=== PATIENT | male | born 1950 | race Caucasian/White ===

== ENCOUNTER 2022-01-28 15:22 | Inpatient (IN) | payer OTHER ==
[2022-01-28 15:44] VITALS: BMI 22.8
[2022-01-28 17:49] LABS: BASO % 0.6 % (0-2.0); EOS % 1.3 % (0-4.5); HEMATOCRIT 29.9 % (35.4-49); HEMOGLOBIN 10.4 GM/dL (11.7-16.9); LYMPH % 18.3 % (8-40); MCH 33.4 pg (25.7-33.7); MCHC 34.7 g/dl (32.0-35.9); MEAN CELL VOLUME 96.2 fl (80-96); MEAN PLT VOLUME 8.6 fl (7.5-11.1); MONO % 10.1 % (3.8-10.2); NEUT % 69.7 % (42.8-82.8); PLATELET COUNT 174 10^3/uL (134-434); RBC 3.11 M/mm3 (4.00-5.60); RDW 13.2 % (11.9-15.9); WHITE BLOOD COUNT 6.2 K/mm3 (4.0-10.0)
[2022-01-28 17:54] LABS: EPI CELLS 26 /uL (0-25.1); HYALINE CASTS 1 /uL (0-3.1); PH,URINE 6.5 (5.0-8.0); URINE APPEARANCE CLEAR; URINE BACTERIA 167 /uL (0-1359); URINE BILIRUBIN NEGATIVE (NEGATIVE); URINE COLOR YELLOW; URINE GLUCOSE (UA) NEGATIVE (NEGATIVE); URINE KETONE NEGATIVE (NEGATIVE); URINE LEUK ESTERASE 2+ (NEGATIVE); URINE NITRITE NEGATIVE (NEGATIVE); URINE PROTEIN 2+ (NEGATIVE); URINE RBC 5 /uL (0-23.9); URINE UROBILINOGEN 0.2 mg/dL (0.2-1.0); URINE WBC 22 /uL (0-25.8)
[2022-01-28 18:06] LABS: CHLORIDE 109 mmol/L (98-107); SODIUM 141 mmol/L (136-145)
[2022-01-28 18:08] LABS: CALCIUM 9.6 mg/dL (8.5-10.1)
[2022-01-28 18:09] LABS: ALBUMIN 3.6 g/dl (3.4-5.0); ANION GAP 10 MMOL/L (8-16); BLOOD UREA NITROGEN 45.5 mg/dL (7-18); CO2 22 mmol/L (21-32); GLUCOSE,RANDOM 99 mg/dL (74-106)
[2022-01-28 18:12] LABS: CREATININE 4.4 mg/dL (0.55-1.3); SGOT/AST 9 U/L (15-37); SGPT/ALT 15 U/L (13-61)
[2022-01-28 18:13] LABS: BILIRUBIN,TOTAL 0.5 mg/dL (0.2-1)
[2022-01-28 18:14] LABS: ALK PHOS 66 U/L (45-117); TOT PROT 7.4 g/dl (6.4-8.2)
[2022-01-28] MEDS ORDERED: SODIUM CHLORIDE 0.9% 500 ML INFUS.BAG IV ONE (18:34)
[2022-01-28] MEDS ORDERED: CEFTRIAXONE 1 GM in DEXTROSE 5%-WATER - 100 ML IVPB ONE (18:34)
[2022-01-28] MEDS ORDERED: CEFTRIAXONE 1 GM/50 ML BAG ONE (18:47)
[2022-01-28 21:17] LABS: MAGNESIUM 2.4 mg/dL (1.8-2.4)
[2022-01-28 21:21] LABS: PHOSPHOROUS 5.8 mg/dL (2.5-4.9)
[2022-01-28 21:23] LABS: IRON SERUM 115 ug/dL (50-175); TOTAL IRON BINDING CAPACITY 256 ug/dL (250-450)
[2022-01-28] MEDS: LIDOCAINE PATCH REMOVAL MC SCH (23:30)
[2022-01-28] MEDS: HEPARIN NA (PORCINE) 5,000 UNITS/ML 1ML VIAL SQ SCH (23:30)
[2022-01-29] MEDS: HEPARIN NA (PORCINE) 5,000 UNITS/ML 1ML VIAL SQ SCH ×3 (07:20→21:21)
[2022-01-29 09:05] LABS: INR 1.04 (0.83-1.09)
[2022-01-29 09:06] LABS: BASO % 1.1 % (0-2.0); EOS % 1.7 % (0-4.5); HEMATOCRIT 30.8 % (35.4-49); HEMOGLOBIN 10.6 GM/dL (11.7-16.9); LYMPH % 18.9 % (8-40); MCH 33.4 pg (25.7-33.7); MCHC 34.5 g/dl (32.0-35.9); MEAN CELL VOLUME 97.1 fl (80-96); MEAN PLT VOLUME 9.2 fl (7.5-11.1); MONO % 7.5 % (3.8-10.2); NEUT % 70.8 % (42.8-82.8); PLATELET COUNT 193 10^3/uL (134-434); RBC 3.17 M/mm3 (4.00-5.60); RDW 13.1 % (11.9-15.9); WHITE BLOOD COUNT 5.3 K/mm3 (4.0-10.0)
[2022-01-29 09:08] LABS: ACTIVATED PTT 27.5 SECONDS (25.2-36.5)
[2022-01-29] MEDS: LIDOCAINE 5% TOPICAL PATCH TP SCH (09:13)
[2022-01-29 09:30] LABS: ALBUMIN 3.8 g/dl (3.4-5.0); BLOOD UREA NITROGEN 42.8 mg/dL (7-18); CALCIUM 9.9 mg/dL (8.5-10.1); MAGNESIUM 2.6 mg/dL (1.8-2.4)
[2022-01-29 09:33] LABS: BILIRUBIN,TOTAL 0.5 mg/dL (0.2-1); CREATININE 4.5 mg/dL (0.55-1.3); TOT PROT 7.3 g/dl (6.4-8.2)
[2022-01-29 10:01] LABS: ERYTHROCYTE SEDIMENTATION RATE 53 mm/hr (0-20)
[2022-01-29] MEDS: SEVELAMER CARBONATE 800 MG TAB (FP) PO SCH (17:16)
[2022-01-29] MEDS: SODIUM CHLORIDE 0.45% 1,000 ML IV SCH (17:17)
[2022-01-29] MEDS: LIDOCAINE PATCH REMOVAL MC SCH (21:21)
[2022-01-30] MEDS: HEPARIN NA (PORCINE) 5,000 UNITS/ML 1ML VIAL SQ SCH ×2 (06:23→06:27)
[2022-01-30 09:16] LABS: HEMATOCRIT 31.1 % (35.4-49); HEMOGLOBIN 10.9 GM/dL (11.7-16.9); MCH 33.6 pg (25.7-33.7); MCHC 35.1 g/dl (32.0-35.9); MEAN CELL VOLUME 95.7 fl (80-96); PLATELET COUNT 184 10^3/uL (134-434); RBC 3.24 M/mm3 (4.00-5.60); RDW 13.1 % (11.9-15.9); WHITE BLOOD COUNT 5.9 K/mm3 (4.0-10.0)
[2022-01-30 09:21] LABS: INR 1.04 (0.83-1.09)
[2022-01-30] MEDS: SEVELAMER CARBONATE 800 MG TAB (FP) PO SCH ×4 (09:29→17:28)
[2022-01-30 09:37] LABS: ALBUMIN 3.7 g/dl (3.4-5.0); BLOOD UREA NITROGEN 38.5 mg/dL (7-18); CALCIUM 9.9 mg/dL (8.5-10.1); MAGNESIUM 2.5 mg/dL (1.8-2.4); PHOSPHOROUS 4.7 mg/dL (2.5-4.9)
[2022-01-30 09:39] LABS: BILIRUBIN,TOTAL 0.6 mg/dL (0.2-1); TOT PROT 7.4 g/dl (6.4-8.2)
[2022-01-30 09:40] LABS: CREATININE 4.2 mg/dL (0.55-1.3); URIC ACID 9.2 mg/dL (2.6-7.2)
[2022-01-30] MEDS ORDERED: ALLOPURINOL 300 MG TABLET (FP) PO SCH (10:00)
[2022-01-30] MEDS: LIDOCAINE 5% TOPICAL PATCH TP SCH (10:02)
[2022-01-30] MEDS ORDERED: SODIUM CHLORIDE 500 ML IV ONE (11:20)
[2022-01-30] MEDS: SODIUM CHLORIDE 0.45% 1,000 ML IV SCH (15:28)
[2022-01-30] MEDS ORDERED: DEXAMETHASONE 4 MG TABLET (FP) PO SCH (19:00)
[2022-01-30] MEDS: DEXAMETHASONE 4 MG TABLET (FP) PO SCH (20:12)
[2022-01-30] MEDS: LIDOCAINE PATCH REMOVAL MC SCH (22:45)
[2022-01-31] MEDS ORDERED: ACETAMINOPHEN 1000 MG/100 ML BAG IVPB ONE (01:06)
[2022-01-31] MEDS: SODIUM CHLORIDE 0.45% 1,000 ML IV SCH ×2 (05:59→15:33)
[2022-01-31] MEDS: SEVELAMER CARBONATE 800 MG TAB (FP) PO SCH ×3 (08:40→17:28)
[2022-01-31 10:26] LABS: HEMATOCRIT 30.5 % (35.4-49); HEMOGLOBIN 10.8 GM/dL (11.7-16.9); MCHC 35.3 g/dl (32.0-35.9); MEAN CELL VOLUME 96.4 fl (80-96); PLATELET COUNT 161 10^3/uL (134-434); RBC 3.17 M/mm3 (4.00-5.60); RDW 13.1 % (11.9-15.9); WHITE BLOOD COUNT 6.5 K/mm3 (4.0-10.0)
[2022-01-31] MEDS: SODIUM BICARBONATE 650 MG TABLET PO SCH (10:38)
[2022-01-31] MEDS: ALLOPURINOL 100 MG TABLET (FP) PO SCH (10:38)
[2022-01-31] MEDS: LIDOCAINE 5% TOPICAL PATCH TP SCH (10:39)
[2022-01-31] MEDS: PANTOPRAZOLE 40 MG TABLET PO SCH (10:39)
[2022-01-31 10:48] LABS: CALCIUM 9.9 mg/dL (8.5-10.1)
[2022-01-31 10:50] LABS: ALBUMIN 3.6 g/dl (3.4-5.0); BLOOD UREA NITROGEN 38.2 mg/dL (7-18); MAGNESIUM 2.2 mg/dL (1.8-2.4)
[2022-01-31 10:52] LABS: CREATININE 3.9 mg/dL (0.55-1.3); PHOSPHOROUS 5.6 mg/dL (2.5-4.9)
[2022-01-31 10:53] LABS: BILIRUBIN,TOTAL 0.6 mg/dL (0.2-1); TOT PROT 7.3 g/dl (6.4-8.2)
[2022-01-31] MEDS ORDERED: SODIUM CHLORIDE 0.45% 1,000 ML IV SCH (17:00)
[2022-01-31] MEDS ORDERED: cefTRIAXone SODIUM 1 GM VIAL ONE (17:27)
[2022-01-31] MEDS ORDERED: DEXTROSE 5%-WATER - 50 ML IVPB ONE (17:27)
[2022-01-31] MEDS: CEFTRIAXONE 1 GM in DEXTROSE 5%-WATER - 50 ML IVPB SCH (17:29)
[2022-01-31] MEDS: DEXAMETHASONE 4 MG TABLET (FP) PO SCH (18:00)
[2022-01-31 18:08] LABS: FREE KAPPA,SERUM 24.6 mg/L (3.3-19.4)
[2022-01-31] MEDS: INSULIN SLIDING SCALE (NOVOLOG) 1 VIAL SQ SCH (21:31)
[2022-01-31] MEDS: LIDOCAINE PATCH REMOVAL MC SCH (21:31)
[2022-02-01] MEDS: INSULIN SLIDING SCALE (NOVOLOG) 1 VIAL SQ SCH ×4 (06:43→21:38)
[2022-02-01] MEDS: SEVELAMER CARBONATE 800 MG TAB (FP) PO SCH ×3 (08:26→18:05)
[2022-02-01] MEDS ORDERED: cefTRIAXone SODIUM 1 GM VIAL ONE (09:57)
[2022-02-01 10:06] LABS: HEMATOCRIT 29.1 % (35.4-49); MCH 33.5 pg (25.7-33.7); MCHC 34.3 g/dl (32.0-35.9); MEAN CELL VOLUME 97.6 fl (80-96); PLATELET COUNT 189 10^3/uL (134-434); RBC 2.98 M/mm3 (4.00-5.60); RDW 13.4 % (11.9-15.9); WHITE BLOOD COUNT 9.3 K/mm3 (4.0-10.0)
[2022-02-01 10:21] LABS: ALBUMIN 3.9 g/dl (3.4-5.0); BLOOD UREA NITROGEN 47.6 mg/dL (7-18); MAGNESIUM 2.3 mg/dL (1.8-2.4)
[2022-02-01 10:24] LABS: CREATININE 3.6 mg/dL (0.55-1.3); PHOSPHOROUS 5.8 mg/dL (2.5-4.9)
[2022-02-01 10:26] LABS: BILIRUBIN,TOTAL 0.3 mg/dL (0.2-1); TOT PROT 7.7 g/dl (6.4-8.2)
[2022-02-01] MEDS: CEFTRIAXONE 1 GM in DEXTROSE 5%-WATER - 50 ML IVPB SCH (10:52)
[2022-02-01] MEDS: SODIUM BICARBONATE 650 MG TABLET PO SCH (10:53)
[2022-02-01] MEDS: ALLOPURINOL 100 MG TABLET (FP) PO SCH (10:53)
[2022-02-01] MEDS: PANTOPRAZOLE 40 MG TABLET PO SCH (10:53)
[2022-02-01] MEDS: LIDOCAINE 5% TOPICAL PATCH TP SCH (10:54)
[2022-02-01] MEDS: SODIUM CHLORIDE 0.45% 1,000 ML IV SCH (16:28)
[2022-02-01] MEDS: DEXAMETHASONE 4 MG TABLET (FP) PO SCH (18:05)
[2022-02-01] MEDS ORDERED: INSULIN (NOVOLOG) ASPART 100 UNITS/ML 10ML VIAL ONE (21:21)
[2022-02-01] MEDS: LIDOCAINE PATCH REMOVAL MC SCH (21:33)
[2022-02-02] MEDS: INSULIN SLIDING SCALE (NOVOLOG) 1 VIAL SQ SCH ×4 (06:20→21:19)
[2022-02-02] MEDS: SEVELAMER CARBONATE 800 MG TAB (FP) PO SCH ×3 (08:39→17:22)
[2022-02-02] MEDS ORDERED: cefTRIAXone SODIUM 1 GM VIAL ONE (09:26)
[2022-02-02] MEDS ORDERED: DEXTROSE 5%-WATER - 50 ML IVPB ONE (09:27)
[2022-02-02] MEDS: PANTOPRAZOLE 40 MG TABLET PO SCH (09:31)
[2022-02-02] MEDS: SODIUM BICARBONATE 650 MG TABLET PO SCH ×3 (09:31→21:19)
[2022-02-02] MEDS: CEFTRIAXONE 1 GM in DEXTROSE 5%-WATER - 50 ML IVPB SCH (09:32)
[2022-02-02] MEDS: ALLOPURINOL 100 MG TABLET (FP) PO SCH (09:32)
[2022-02-02] MEDS: LIDOCAINE 5% TOPICAL PATCH TP SCH (09:33)
[2022-02-02 10:15] LABS: HEMOGLOBIN 8.2 GM/dL (11.7-16.9); MCH 33.8 pg (25.7-33.7); MCHC 34.3 g/dl (32.0-35.9); MEAN CELL VOLUME 98.6 fl (80-96); MEAN PLT VOLUME 8.9 fl (7.5-11.1); PLATELET COUNT 154 10^3/uL (134-434); RBC 2.43 M/mm3 (4.00-5.60); RDW 13.4 % (11.9-15.9)
[2022-02-02 10:45] LABS: ALBUMIN 3.2 g/dl (3.4-5.0)
[2022-02-02 10:46] LABS: MAGNESIUM 2.2 mg/dL (1.8-2.4)
[2022-02-02 10:49] LABS: BILIRUBIN,TOTAL 0.4 mg/dL (0.2-1); CREATININE 3.2 mg/dL (0.55-1.3); PHOSPHOROUS 5.2 mg/dL (2.5-4.9)
[2022-02-02 10:50] LABS: TOT PROT 6.4 g/dl (6.4-8.2)
[2022-02-02 11:07] LABS: ANTIGLOMERULAR BASEMENT MEN.AB 2 units (0-20)
[2022-02-02] MEDS: SODIUM CHLORIDE 0.45% 1,000 ML IV SCH ×2 (15:21→17:27)
[2022-02-02 18:07] LABS: ATYPICAL pANCA <1:20 titer (Neg:<1:20); C-ANCA <1:20 titer (Neg:<1:20)
[2022-02-02] MEDS: DEXAMETHASONE 4 MG TABLET (FP) PO SCH (18:37)
[2022-02-02] MEDS ORDERED: INSULIN (NOVOLOG) ASPART 100 UNITS/ML 10ML VIAL ONE (21:13)
[2022-02-02] MEDS: LIDOCAINE PATCH REMOVAL MC SCH (21:14)
[2022-02-03] MEDS ORDERED: ACETAMINOPHEN 500 MG TABLET (FP) PO ONE (03:25)
[2022-02-03] MEDS: INSULIN SLIDING SCALE (NOVOLOG) 1 VIAL SQ SCH ×4 (06:25→21:19)
[2022-02-03] MEDS: SEVELAMER CARBONATE 800 MG TAB (FP) PO SCH ×3 (08:17→16:59)
[2022-02-03 08:38] LABS: CALCIUM 9.2 mg/dL (8.5-10.1)
[2022-02-03 08:39] LABS: ALBUMIN 3.4 g/dl (3.4-5.0); BLOOD UREA NITROGEN 50.8 mg/dL (7-18); MAGNESIUM 2.2 mg/dL (1.8-2.4)
[2022-02-03 08:40] LABS: HEMATOCRIT 25.4 % (35.4-49); HEMOGLOBIN 8.8 GM/dL (11.7-16.9); MCH 33.6 pg (25.7-33.7); MCHC 34.6 g/dl (32.0-35.9); MEAN CELL VOLUME 97.1 fl (80-96); MEAN PLT VOLUME 8.7 fl (7.5-11.1); PLATELET COUNT 169 10^3/uL (134-434); RBC 2.62 M/mm3 (4.00-5.60); RDW 13.4 % (11.9-15.9); WHITE BLOOD COUNT 9.3 K/mm3 (4.0-10.0)
[2022-02-03 08:42] LABS: PHOSPHOROUS 4.2 mg/dL (2.5-4.9)
[2022-02-03 08:43] LABS: BILIRUBIN,TOTAL 0.3 mg/dL (0.2-1); TOT PROT 6.5 g/dl (6.4-8.2)
[2022-02-03] MEDS: SODIUM CHLORIDE 0.45% 1,000 ML IV SCH ×2 (08:57→16:42)
[2022-02-03] MEDS ORDERED: SODIUM CHLORIDE 500 ML IV SCH (10:30)
[2022-02-03] MEDS: PANTOPRAZOLE 40 MG TABLET PO SCH (11:25)
[2022-02-03] MEDS: LIDOCAINE 5% TOPICAL PATCH TP SCH (11:25)
[2022-02-03] MEDS: SODIUM BICARBONATE 650 MG TABLET PO SCH ×2 (11:26→21:19)
[2022-02-03] MEDS: ALLOPURINOL 100 MG TABLET (FP) PO SCH (11:26)
[2022-02-03 15:10] LABS: ALBUMIN % 6.4 % (.); ALPHA-1 FOR UPE 1.2 % (.); TOTAL PROTEIN, URINE 794.9 mg/dL (Not Estab.)
[2022-02-03] MEDS ORDERED: DEXAMETHASONE 4 MG TABLET (FP) PO ONE (20:00)
[2022-02-03] MEDS: LIDOCAINE PATCH REMOVAL MC SCH (21:14)
[2022-02-03] MEDS ORDERED: ACETAMINOPHEN 1000 MG/100 ML BAG IVPB ONE (23:33)
[2022-02-04] MEDS: INSULIN SLIDING SCALE (NOVOLOG) 1 VIAL SQ SCH ×4 (06:27→21:46)
[2022-02-04 08:25] LABS: HEMATOCRIT 26.1 % (35.4-49); HEMOGLOBIN 9.1 GM/dL (11.7-16.9); MCH 33.6 pg (25.7-33.7); MEAN CELL VOLUME 96.1 fl (80-96); MEAN PLT VOLUME 8.6 fl (7.5-11.1); PLATELET COUNT 146 10^3/uL (134-434); RBC 2.71 M/mm3 (4.00-5.60); RDW 13.4 % (11.9-15.9); WHITE BLOOD COUNT 6.2 K/mm3 (4.0-10.0)
[2022-02-04] MEDS: SEVELAMER CARBONATE 800 MG TAB (FP) PO SCH ×3 (08:38→17:13)
[2022-02-04] MEDS: SODIUM CHLORIDE 0.45% 1,000 ML IV SCH (08:39)
[2022-02-04 08:51] LABS: ALBUMIN 3.2 g/dl (3.4-5.0); CALCIUM 9.1 mg/dL (8.5-10.1)
[2022-02-04 08:54] LABS: CREATININE 2.7 mg/dL (0.55-1.3); PHOSPHOROUS 5.9 mg/dL (2.5-4.9)
[2022-02-04 08:56] LABS: BILIRUBIN,TOTAL 0.6 mg/dL (0.2-1); TOT PROT 6.1 g/dl (6.4-8.2)
[2022-02-04] MEDS: LIDOCAINE 5% TOPICAL PATCH TP SCH (10:44)
[2022-02-04] MEDS: SODIUM BICARBONATE 650 MG TABLET PO SCH ×3 (10:45→21:44)
[2022-02-04] MEDS: PANTOPRAZOLE 40 MG TABLET PO SCH (10:45)
[2022-02-04] MEDS: ALLOPURINOL 100 MG TABLET (FP) PO SCH ×2 (10:45→10:50)
[2022-02-04 15:07] LABS: FREE KAP CHN UR 100.11 mg/L (1.17-86.46)
[2022-02-04] MEDS ORDERED: INSULIN (NOVOLOG) ASPART 100 UNITS/ML 10ML VIAL ONE (21:20)
[2022-02-04] MEDS: HEPARIN NA (PORCINE) 5,000 UNITS/ML 1ML VIAL SQ SCH (21:44)
[2022-02-04] MEDS: LIDOCAINE PATCH REMOVAL MC SCH (22:00)
[2022-02-05] MEDS ORDERED: ACETAMINOPHEN 325 MG TABLET (FP) PO PRN (00:51)
[2022-02-05] MEDS: SODIUM CHLORIDE 0.45% 1,000 ML IV SCH ×2 (02:38→11:44)
[2022-02-05] MEDS: INSULIN SLIDING SCALE (NOVOLOG) 1 VIAL SQ SCH ×2 (06:37→11:32)
[2022-02-05] MEDS: HEPARIN NA (PORCINE) 5,000 UNITS/ML 1ML VIAL SQ SCH ×2 (06:37→14:17)
[2022-02-05] MEDS: SEVELAMER CARBONATE 800 MG TAB (FP) PO SCH ×2 (08:21→11:44)
[2022-02-05 08:27] LABS: HEMATOCRIT 23.5 % (35.4-49); HEMOGLOBIN 8.2 GM/dL (11.7-16.9); MCH 33.5 pg (25.7-33.7); MCHC 34.8 g/dl (32.0-35.9); MEAN CELL VOLUME 96.4 fl (80-96); MEAN PLT VOLUME 8.4 fl (7.5-11.1); PLATELET COUNT 136 10^3/uL (134-434); RBC 2.43 M/mm3 (4.00-5.60); RDW 13.2 % (11.9-15.9); WHITE BLOOD COUNT 6.1 K/mm3 (4.0-10.0)
[2022-02-05 08:57] LABS: BLOOD UREA NITROGEN 48.8 mg/dL (7-18)
[2022-02-05 08:58] LABS: ALBUMIN 2.8 g/dl (3.4-5.0); CALCIUM 8.8 mg/dL (8.5-10.1); MAGNESIUM 2.3 mg/dL (1.8-2.4)
[2022-02-05 09:01] LABS: PHOSPHOROUS 4.1 mg/dL (2.5-4.9); TOT PROT 5.4 g/dl (6.4-8.2)
[2022-02-05 09:02] LABS: BILIRUBIN,TOTAL 0.4 mg/dL (0.2-1); CREATININE 2.6 mg/dL (0.55-1.3)
[2022-02-05] MEDS: LIDOCAINE 5% TOPICAL PATCH TP SCH (10:16)
[2022-02-05] MEDS: PANTOPRAZOLE 40 MG TABLET PO SCH (10:16)
[2022-02-05] MEDS: ALLOPURINOL 100 MG TABLET (FP) PO SCH (10:16)
[2022-02-05] MEDS: SODIUM BICARBONATE 650 MG TABLET PO SCH (10:16)
[2022-02-05 11:04] VITALS: TEMP 97.8
[2022-02-05] MEDS ORDERED: INSULIN (NOVOLOG) ASPART 100 UNITS/ML 10ML VIAL ONE (11:22)
[2022-02-05] MEDS ORDERED: oxyCODONE HCL 5 MG TABLET PO PRN (13:09)
[2022-02-05 15:26] VITALS: BP 91/52; PULSE 52
== END 2022-02-05 15:55 | disposition home or self-care (01) | DRG 841 ==
LOC: JER 15:22 → JERBED 19:21 → J6S 22:49
PROVIDERS: ADMIT Hospitalist; ATTEND Internal Medicine
PROC: 07DR3ZX Extraction of Iliac Bone Marrow, Percutaneous Approach, Diagnostic (ICD-10-PCS; principal; 2022-02-03)
PROC: 079T3ZX Drainage of Bone Marrow, Percutaneous Approach, Diagnostic (ICD-10-PCS; 2022-02-03)
DX: C90.00 Multiple myeloma not having achieved remission (principal); N17.9 Acute kidney failure, unspecified; N39.0 Urinary tract infection, site not specified; C79.51 Secondary malignant neoplasm of bone; M35.00 Sjogren syndrome, unspecified; D63.8 Anemia in other chronic diseases classified elsewhere; Z79.1 Long term (current) use of non-steroidal anti-inflammatories (NSAID); R80.9 Proteinuria, unspecified; R31.29 Other microscopic hematuria; K76.0 Fatty (change of) liver, not elsewhere classified; R91.1 Solitary pulmonary nodule
CPT/HCPCS: 20225; 36415; 71046-TC-FY; 71250-TC; 72170-TC-FY; 73552-TC-LT-FY; 73552-TC-RT-FY; 73590-TC-LT-FY; 73590-TC-RT-FY; 74176-TC; 76775-TC; 80053; 81003; 82436; 82550; 82570; 82607; 82728; 82746; 82784; 82962; 83036; 83516; 83520; 83540; 83550; 83615; 83735; 83883; 84100; 84155; 84156; 84165; 84166; 84300; 84550; 85025; 85027; 85610; 85651; 85730; 86038; 86140; 86225; 86256; 86803; 86850; 86900; 86901; 87040; 87077; 87086; 87340; 87517; 88300-TC; 88305-TC; 88311-TC; 93005; 93010; 94010; 97116-GP; 97161-GP; 99285-25; C9803-CS; J1644; U0003; U0005

== ENCOUNTER 2022-02-12 07:22 | Day surgery (SDC) | payer OTHER ==
[2022-02-12] MEDS ORDERED: CYCLOPHOSPHAMIDE PO ONE (09:00)
[2022-02-12] MEDS ORDERED: DEXAMETHASONE 4 MG TABLET (FP) PO ONE (09:00)
[2022-02-12] MEDS ORDERED: BORTEZOMIB (VELCADE) 2.5 MG/ML SUB-Q INJECTION SQ ONE (09:00)
[2022-02-12] MEDS ORDERED: ONDANSETRON 4 MG TABLET PO ONE (15:34)
[2022-02-12 16:21] VITALS: TEMP 97.4
[2022-02-12 16:35] VITALS: BP 116/64; PULSE 80
== END 2022-02-12 17:30 | disposition home or self-care (01) ==
LOC: JONCCHEMO 07:22
PROVIDERS: ATTEND Internal Medicine Hematology & Oncology
DX: Z51.11 Encounter for antineoplastic chemotherapy (principal); C90.00 Multiple myeloma not having achieved remission
CPT/HCPCS: 96401; J9041

== ENCOUNTER 2022-02-19 07:30 | Day surgery (SDC) | payer OTHER ==
[2022-02-19] MEDS ORDERED: BORTEZOMIB (VELCADE) 2.5 MG/ML SUB-Q INJECTION SQ ONE (10:00)
[2022-02-19] MEDS ORDERED: DEXAMETHASONE 4 MG TABLET (FP) PO ONE (10:00)
[2022-02-19] MEDS ORDERED: CYCLOPHOSPHAMIDE PO ONE (10:00)
[2022-02-19 10:48] LABS: BASO % 0.2 % (0-2.0); EOS % 0.3 % (0-4.5); HEMATOCRIT 27.5 % (35.4-49); HEMOGLOBIN 9.6 GM/dL (11.7-16.9); LYMPH % 10.4 % (8-40); MCH 33.8 pg (25.7-33.7); MEAN CELL VOLUME 96.4 fl (80-96); MEAN PLT VOLUME 8.4 fl (7.5-11.1); MONO % 11.2 % (3.8-10.2); NEUT % 77.9 % (42.8-82.8); PLATELET COUNT 115 10^3/uL (134-434); RBC 2.85 M/mm3 (4.00-5.60); RDW 13.4 % (11.9-15.9); WHITE BLOOD COUNT 3.6 K/mm3 (4.0-10.0)
[2022-02-19 11:10] LABS: BLOOD UREA NITROGEN 28.5 mg/dL (7-18); CALCIUM 8.4 mg/dL (8.5-10.1)
[2022-02-19 11:11] LABS: ALBUMIN 3.4 g/dl (3.4-5.0)
[2022-02-19 11:14] LABS: CREATININE 2.5 mg/dL (0.55-1.3)
[2022-02-19 11:15] LABS: BILIRUBIN,TOTAL 0.9 mg/dL (0.2-1); TOT PROT 6.3 g/dl (6.4-8.2)
[2022-02-19] MEDS ORDERED: DENOSUMAB 120 MG/1.7 ML VIAL SQ ONE (11:46)
[2022-02-19 16:42] VITALS: BP 138/75; PULSE 70; TEMP 97.6
== END 2022-02-19 15:00 | disposition home or self-care (01) ==
LOC: JONCCHEMO 07:30
PROVIDERS: ATTEND Internal Medicine Hematology & Oncology
PROC: 3E01305 Introduction of Other Antineoplastic into Subcutaneous Tissue, Percutaneous Approach (ICD-10-PCS; principal; 2022-02-19)
PROC: 3E013GC Introduction of Other Therapeutic Substance into Subcutaneous Tissue, Percutaneous Approach (ICD-10-PCS; 2022-02-19)
DX: Z51.11 Encounter for antineoplastic chemotherapy (principal); C90.00 Multiple myeloma not having achieved remission
CPT/HCPCS: 36415; 80053; 85025; 96372; 96401; J0897; J9041

== ENCOUNTER 2022-02-27 06:50 | Day surgery (SDC) | payer OTHER ==
[2022-02-27 11:45] LABS: BASO % 0.6 % (0-2.0); EOS % 1.4 % (0-4.5); HEMATOCRIT 27.3 % (35.4-49); HEMOGLOBIN 9.4 GM/dL (11.7-16.9); LYMPH % 12.8 % (8-40); MCH 33.9 pg (25.7-33.7); MCHC 34.6 g/dl (32.0-35.9); MEAN CELL VOLUME 97.9 fl (80-96); MEAN PLT VOLUME 8.5 fl (7.5-11.1); MONO % 13.2 % (3.8-10.2); PLATELET COUNT 202 10^3/uL (134-434); RBC 2.78 M/mm3 (4.00-5.60); RDW 14.7 % (11.9-15.9); WHITE BLOOD COUNT 3.9 K/mm3 (4.0-10.0)
[2022-02-27 12:05] LABS: ALBUMIN 3.5 g/dl (3.4-5.0); BLOOD UREA NITROGEN 15.7 mg/dL (7-18); CALCIUM 8.7 mg/dL (8.5-10.1)
[2022-02-27 12:10] LABS: BILIRUBIN,TOTAL 0.5 mg/dL (0.2-1); TOT PROT 6.1 g/dl (6.4-8.2)
[2022-02-27] MEDS ORDERED: DEXAMETHASONE 4 MG TABLET (FP) PO ONE (13:00)
[2022-02-27] MEDS ORDERED: CYCLOPHOSPHAMIDE 50 MG CAPSULE PO ONE (13:00)
[2022-02-27] MEDS ORDERED: CYCLOPHOSPHAMIDE PO ONE (13:00)
[2022-02-27] MEDS ORDERED: BORTEZOMIB (VELCADE) 2.5 MG/ML SUB-Q INJECTION SQ ONE (13:30)
[2022-02-27 17:17] VITALS: BP 139/60; PULSE 69; TEMP 98.9
== END 2022-02-27 14:00 | disposition home or self-care (01) ==
LOC: JONCCHEMO 06:50
PROVIDERS: ATTEND Internal Medicine Hematology & Oncology
DX: Z51.11 Encounter for antineoplastic chemotherapy (principal); C90.00 Multiple myeloma not having achieved remission
CPT/HCPCS: 36415; 80053; 85025; 96401; J9041

== ENCOUNTER 2022-03-06 08:03 | Day surgery (SDC) | payer OTHER ==
[2022-03-06 10:59] LABS: BASO % 0.5 % (0-2.0); EOS % 0.5 % (0-4.5); HEMATOCRIT 26.6 % (35.4-49); HEMOGLOBIN 9.2 GM/dL (11.7-16.9); LYMPH % 9.7 % (8-40); MCH 34.2 pg (25.7-33.7); MCHC 34.5 g/dl (32.0-35.9); MEAN CELL VOLUME 99.3 fl (80-96); MEAN PLT VOLUME 8.2 fl (7.5-11.1); MONO % 11.3 % (3.8-10.2); PLATELET COUNT 169 10^3/uL (134-434); RBC 2.68 M/mm3 (4.00-5.60); RDW 14.1 % (11.9-15.9); WHITE BLOOD COUNT 3.1 K/mm3 (4.0-10.0)
[2022-03-06] MEDS ORDERED: BORTEZOMIB (VELCADE) 2.5 MG/ML SUB-Q INJECTION SQ ONE (11:00)
[2022-03-06] MEDS ORDERED: DEXAMETHASONE 4 MG TABLET (FP) PO ONE (11:00)
[2022-03-06] MEDS ORDERED: CYCLOPHOSPHAMIDE 50 MG CAPSULE PO ONE (11:00)
[2022-03-06 11:20] LABS: CALCIUM 8.4 mg/dL (8.5-10.1)
[2022-03-06 11:21] LABS: ALBUMIN 3.6 g/dl (3.4-5.0); BLOOD UREA NITROGEN 22.9 mg/dL (7-18)
[2022-03-06 11:25] LABS: TOT PROT 6.3 g/dl (6.4-8.2)
[2022-03-06 15:49] VITALS: BP 120/63; PULSE 67; TEMP 98.4
[2022-03-10 15:13] LABS: FREE KAPPA,SERUM 24.1
== END 2022-03-06 13:20 | disposition home or self-care (01) ==
LOC: JONCCHEMO 08:03
PROVIDERS: ATTEND Internal Medicine Hematology & Oncology
DX: Z51.11 Encounter for antineoplastic chemotherapy (principal); C90.00 Multiple myeloma not having achieved remission
CPT/HCPCS: 36415; 80053; 83883; 85025; 96401; J9041

== ENCOUNTER 2022-03-07 09:17 | Observation (INO) | payer OTHER ==
[2022-03-07] MEDS ORDERED: ACETAMINOPHEN 1000 MG/100 ML BAG IVPB ONE (10:07)
[2022-03-07] MEDS ORDERED: morphine CARPU-JECT 4 MG/1 ML DISP.SYRIN IVPUSH ONE (10:07)
[2022-03-07] MEDS ORDERED: LORazepam 2 MG/ML SDV VIAL IVPUSH ONE (10:30)
[2022-03-07] MEDS ORDERED: ACETAMINOPHEN INJECTION 100 ML IVPB ONE (10:37)
[2022-03-07] MEDS ORDERED: morphine SULFATE 4 MG/ML VIAL ONE ×2 (10:37→14:52)
[2022-03-07 10:47] LABS: BASO % 0.2 % (0-2.0); HEMATOCRIT 23.4 % (35.4-49); HEMOGLOBIN 8.2 GM/dL (11.7-16.9); LYMPH % 4.5 % (8-40); MCH 34.1 pg (25.7-33.7); MCHC 34.9 g/dl (32.0-35.9); MEAN CELL VOLUME 97.8 fl (80-96); MEAN PLT VOLUME 8.3 fl (7.5-11.1); MONO % 6.9 % (3.8-10.2); NEUT % 88.4 % (42.8-82.8); PLATELET COUNT 151 10^3/uL (134-434); RBC 2.39 M/mm3 (4.00-5.60); RDW 14.1 % (11.9-15.9); WHITE BLOOD COUNT 5.4 K/mm3 (4.0-10.0)
[2022-03-07 11:06] LABS: ALBUMIN 3.1 g/dl (3.4-5.0); BLOOD UREA NITROGEN 24.8 mg/dL (7-18); CALCIUM 8.4 mg/dL (8.5-10.1)
[2022-03-07 11:09] LABS: CREATININE 2.1 mg/dL (0.55-1.3)
[2022-03-07 11:11] LABS: BILIRUBIN,TOTAL 0.4 mg/dL (0.2-1); TOT PROT 5.4 g/dl (6.4-8.2)
[2022-03-07 17:41] VITALS: BMI 22.1
[2022-03-07] MEDS: SEVELAMER CARBONATE 800 MG TAB (FP) PO SCH (18:03)
[2022-03-07] MEDS: SODIUM BICARBONATE 650 MG TABLET PO SCH (21:16)
[2022-03-07] MEDS: HEPARIN NA (PORCINE) 5,000 UNITS/ML 1ML VIAL SQ SCH (21:16)
[2022-03-07] MEDS: oxyCODONE HCL 5 MG TABLET PO PRN (23:25)
[2022-03-08] MEDS ORDERED: ACETAMINOPHEN 325 MG TABLET (FP) PO ONE (05:19)
[2022-03-08] MEDS: SEVELAMER CARBONATE 800 MG TAB (FP) PO SCH ×2 (07:42→11:35)
[2022-03-08] MEDS: HEPARIN NA (PORCINE) 5,000 UNITS/ML 1ML VIAL SQ SCH (09:07)
[2022-03-08] MEDS: SODIUM BICARBONATE 650 MG TABLET PO SCH (09:07)
[2022-03-08 09:38] LABS: BASO % 0.6 % (0-2.0); EOS % 0.2 % (0-4.5); HEMATOCRIT 22.5 % (35.4-49); HEMOGLOBIN 7.7 GM/dL (11.7-16.9); LYMPH % 7.1 % (8-40); MCH 33.8 pg (25.7-33.7); MCHC 34.4 g/dl (32.0-35.9); MEAN CELL VOLUME 98.3 fl (80-96); MEAN PLT VOLUME 8.8 fl (7.5-11.1); MONO % 9.8 % (3.8-10.2); NEUT % 82.3 % (42.8-82.8); PLATELET COUNT 144 10^3/uL (134-434); RBC 2.29 M/mm3 (4.00-5.60); RDW 14.2 % (11.9-15.9); WHITE BLOOD COUNT 3.5 K/mm3 (4.0-10.0)
[2022-03-08 09:58] LABS: BLOOD UREA NITROGEN 25.8 mg/dL (7-18)
[2022-03-08 09:59] LABS: ALBUMIN 2.8 g/dl (3.4-5.0); CALCIUM 7.6 mg/dL (8.5-10.1)
[2022-03-08] MEDS ORDERED: ALLOPURINOL 100 MG TABLET (FP) PO SCH (10:00)
[2022-03-08 10:02] LABS: CREATININE 2.3 mg/dL (0.55-1.3)
[2022-03-08 10:03] LABS: BILIRUBIN,TOTAL 0.8 mg/dL (0.2-1); TOT PROT 5.1 g/dl (6.4-8.2)
[2022-03-08 10:51] VITALS: BP 105/58; PULSE 84; TEMP 98.2
[2022-03-08] MEDS: oxyCODONE HCL 5 MG TABLET PO PRN (11:33)
[2022-03-08] MEDS ORDERED: ACETAMINOPHEN 325 MG TABLET (FP) PO PRN (12:00)
== END 2022-03-08 13:40 | disposition left against medical advice (07) ==
LOC: JER 09:17 → JERBED 13:47 → J5S 17:53
PROVIDERS: ADMIT Internal Medicine; ATTEND Nurse Practitioner Family
PROC: 3E033NZ Introduction of Analgesics, Hypnotics, Sedatives into Peripheral Vein, Percutaneous Approach (ICD-10-PCS; principal; 2022-03-07)
PROC: 3E023GC Introduction of Other Therapeutic Substance into Muscle, Percutaneous Approach (ICD-10-PCS; 2022-03-07)
PROC: 3E033NZ Introduction of Analgesics, Hypnotics, Sedatives into Peripheral Vein, Percutaneous Approach (ICD-10-PCS; 2022-03-07)
DX: M35.09 Sjogren syndrome with other organ involvement (principal); C90.00 Multiple myeloma not having achieved remission; M54.6 Pain in thoracic spine; Z87.891 Personal history of nicotine dependence; D64.9 Anemia, unspecified; C79.51 Secondary malignant neoplasm of bone; M48.50XA Collapsed vertebra, not elsewhere classified, site unspecified, initial encounter for fracture
CPT/HCPCS: 36415; 71045-TC-FY; 72125-TC; 72128-TC; 72131-TC; 72146-TC; 72148-TC; 80053; 83605; 85025; 87040; 87804; 93005; 93010; 96372; 96374; 96375; 96376; 99285-25; C9803-CS; G0378; J1644; U0003; U0005

== ENCOUNTER 2022-03-13 07:10 | Day surgery (SDC) | payer OTHER ==
[2022-03-13] MEDS ORDERED: DEXAMETHASONE 4 MG TABLET (FP) PO ONE (10:00)
[2022-03-13] MEDS ORDERED: CYCLOPHOSPHAMIDE 50 MG CAPSULE PO ONE (10:00)
[2022-03-13] MEDS ORDERED: BORTEZOMIB (VELCADE) 2.5 MG/ML SUB-Q INJECTION SQ ONE (10:00)
[2022-03-13 11:51] LABS: BASO % 0.5 % (0-2.0); EOS % 1.6 % (0-4.5); HEMATOCRIT 25.8 % (35.4-49); HEMOGLOBIN 8.7 GM/dL (11.7-16.9); LYMPH % 11.3 % (8-40); MCH 33.6 pg (25.7-33.7); MCHC 33.6 g/dl (32.0-35.9); MEAN CELL VOLUME 100.2 fl (80-96); MEAN PLT VOLUME 8.2 fl (7.5-11.1); MONO % 13.2 % (3.8-10.2); NEUT % 73.4 % (42.8-82.8); PLATELET COUNT 201 10^3/uL (134-434); RBC 2.57 M/mm3 (4.00-5.60); RDW 14.6 % (11.9-15.9); WHITE BLOOD COUNT 4.1 K/mm3 (4.0-10.0)
[2022-03-13 12:10] LABS: ALBUMIN 3.2 g/dl (3.4-5.0); BLOOD UREA NITROGEN 17.5 mg/dL (7-18); CALCIUM 7.6 mg/dL (8.5-10.1)
[2022-03-13 12:13] LABS: CREATININE 1.7 mg/dL (0.55-1.3)
[2022-03-13 12:15] LABS: BILIRUBIN,TOTAL 0.9 mg/dL (0.2-1); TOT PROT 5.7 g/dl (6.4-8.2)
[2022-03-13 16:32] VITALS: BP 136/79; PULSE 76; TEMP 97.9
== END 2022-03-13 13:30 | disposition home or self-care (01) ==
LOC: JONCCHEMO 07:10
PROVIDERS: ATTEND Internal Medicine Hematology & Oncology
DX: Z51.11 Encounter for antineoplastic chemotherapy (principal); C90.00 Multiple myeloma not having achieved remission
CPT/HCPCS: 36415; 80053; 85025; 96401; J9041

== ENCOUNTER 2022-03-20 07:24 | Day surgery (SDC) | payer OTHER ==
[2022-03-20] MEDS ORDERED: CYCLOPHOSPHAMIDE 50 MG CAPSULE PO ONE (10:00)
[2022-03-20] MEDS ORDERED: DEXAMETHASONE 4 MG TABLET (FP) PO ONE (10:00)
[2022-03-20] MEDS ORDERED: BORTEZOMIB (VELCADE) 2.5 MG/ML SUB-Q INJECTION SQ ONE (10:00)
[2022-03-20 12:27] LABS: BASO % 0.4 % (0-2.0); EOS % 0.9 % (0-4.5); HEMATOCRIT 26.3 % (35.4-49); HEMOGLOBIN 8.8 GM/dL (11.7-16.9); LYMPH % 13.7 % (8-40); MCH 33.8 pg (25.7-33.7); MCHC 33.4 g/dl (32.0-35.9); MEAN CELL VOLUME 101.1 fl (80-96); MEAN PLT VOLUME 8.6 fl (7.5-11.1); MONO % 12.1 % (3.8-10.2); NEUT % 72.9 % (42.8-82.8); PLATELET COUNT 164 10^3/uL (134-434); RDW 14.5 % (11.9-15.9); WHITE BLOOD COUNT 2.5 K/mm3 (4.0-10.0)
[2022-03-20] MEDS ORDERED: DENOSUMAB 120 MG/1.7 ML VIAL SQ ONE (13:12)
[2022-03-20 13:48] LABS: CHLORIDE 113 mmol/L (98-107); SODIUM 140 mmol/L (136-145)
[2022-03-20 13:50] LABS: ALBUMIN 3.1 g/dl (3.4-5.0); ANION GAP 6 MMOL/L (8-16); BLOOD UREA NITROGEN 16.2 mg/dL (7-18); CO2 21 mmol/L (21-32); GLUCOSE,RANDOM 100 mg/dL (74-106)
[2022-03-20 13:53] LABS: CREATININE 1.7 mg/dL (0.55-1.3); SGOT/AST 9 U/L (15-37)
[2022-03-20 13:54] LABS: SGPT/ALT 15 U/L (13-61)
[2022-03-20 13:55] LABS: BILIRUBIN,TOTAL 0.5 mg/dL (0.2-1); TOT PROT 5.7 g/dl (6.4-8.2)
[2022-03-20 13:56] VITALS: TEMP 97.7
[2022-03-20 13:56] LABS: ALK PHOS 414 U/L (45-117); CALCIUM 6.9 mg/dL (8.5-10.1)
[2022-03-20 15:49] VITALS: BP 123/68; PULSE 74
[2022-03-25 19:07] LABS: FREE KAPPA,SERUM 30.5 mg/L (3.3-19.4)
== END 2022-03-20 15:50 | disposition home or self-care (01) ==
LOC: JONCCHEMO 07:24
PROVIDERS: ATTEND Internal Medicine Hematology & Oncology
DX: Z51.11 Encounter for antineoplastic chemotherapy (principal); C90.00 Multiple myeloma not having achieved remission
CPT/HCPCS: 36415; 80053; 82784; 83883; 84155; 84165; 85025; 96401; J9041

== ENCOUNTER 2022-03-27 07:45 | Day surgery (SDC) | payer OTHER ==
[2022-03-27] MEDS ORDERED: CYCLOPHOSPHAMIDE 50 MG CAPSULE PO ONE (10:00)
[2022-03-27] MEDS ORDERED: DEXAMETHASONE 4 MG TABLET (FP) PO ONE (10:00)
[2022-03-27] MEDS ORDERED: BORTEZOMIB (VELCADE) 2.5 MG/ML SUB-Q INJECTION SQ ONE (10:00)
[2022-03-27 13:46] LABS: BASO % 0.5 % (0-2.0); EOS % 1.7 % (0-4.5); HEMATOCRIT 29.9 % (35.4-49); LYMPH % 19.7 % (8-40); MCH 33.3 pg (25.7-33.7); MCHC 33.2 g/dl (32.0-35.9); MEAN CELL VOLUME 100.2 fl (80-96); MEAN PLT VOLUME 8.1 fl (7.5-11.1); NEUT % 64.1 % (42.8-82.8); PLATELET COUNT 140 10^3/uL (134-434); RBC 2.99 M/mm3 (4.00-5.60); RDW 13.8 % (11.9-15.9)
[2022-03-27 14:09] LABS: ALBUMIN 3.4 g/dl (3.4-5.0); BLOOD UREA NITROGEN 20.4 mg/dL (7-18)
[2022-03-27 14:14] LABS: BILIRUBIN,TOTAL 0.5 mg/dL (0.2-1)
[2022-03-27 14:24] LABS: CALCIUM 8.3 mg/dL (8.5-10.1); CREATININE 1.6 mg/dL (0.55-1.3)
[2022-03-27] MEDS ORDERED: DENOSUMAB 120 MG/1.7 ML VIAL SQ ONE (15:45)
[2022-03-27 15:46] VITALS: BP 131/72; PULSE 67; TEMP 97.6
[2022-03-27] MEDS ORDERED: CYCLOPHOSPHAMIDE 25 MG CAPSULE PO ONE (16:00)
== END 2022-03-27 16:05 | disposition home or self-care (01) ==
LOC: JONCCHEMO 07:45
PROVIDERS: ATTEND Internal Medicine Hematology & Oncology
PROC: 3E01305 Introduction of Other Antineoplastic into Subcutaneous Tissue, Percutaneous Approach (ICD-10-PCS; principal; 2022-03-27)
PROC: 3E013GC Introduction of Other Therapeutic Substance into Subcutaneous Tissue, Percutaneous Approach (ICD-10-PCS; 2022-03-27)
DX: Z51.11 Encounter for antineoplastic chemotherapy (principal); C90.00 Multiple myeloma not having achieved remission
CPT/HCPCS: 36415; 80053; 85025; 96372; 96401; J0897; J9041

== ENCOUNTER 2022-04-03 06:29 | Day surgery (SDC) | payer OTHER ==
[2022-04-03] MEDS ORDERED: BORTEZOMIB (VELCADE) 2.5 MG/ML SUB-Q INJECTION SQ ONE (10:00)
[2022-04-03] MEDS ORDERED: CYCLOPHOSPHAMIDE 50 MG CAPSULE PO ONE (10:00)
[2022-04-03] MEDS ORDERED: DEXAMETHASONE 4 MG TABLET (FP) PO ONE (10:00)
[2022-04-03 14:04] LABS: HEMATOCRIT 28.3 % (35.4-49); HEMOGLOBIN 9.6 GM/dL (11.7-16.9); MCH 33.5 pg (25.7-33.7); MCHC 33.8 g/dl (32.0-35.9); MEAN CELL VOLUME 98.8 fl (80-96); MEAN PLT VOLUME 8.2 fl (7.5-11.1); PLATELET COUNT 148 10^3/uL (134-434); RBC 2.86 M/mm3 (4.00-5.60); RDW 13.9 % (11.9-15.9); WHITE BLOOD COUNT 4.3 K/mm3 (4.0-10.0)
[2022-04-03 14:28] LABS: ALBUMIN 3.4 g/dl (3.4-5.0); BLOOD UREA NITROGEN 18.6 mg/dL (7-18)
[2022-04-03 14:31] LABS: CREATININE 1.6 mg/dL (0.55-1.3)
[2022-04-03 14:32] LABS: BILIRUBIN,TOTAL 0.6 mg/dL (0.2-1); TOT PROT 5.9 g/dl (6.4-8.2)
[2022-04-03 14:41] LABS: ANISOCYTOSIS 1+; MACROCYTOSIS 1+; OVALOCYTE 0
[2022-04-03] MEDS ORDERED: CYCLOPHOSPHAMIDE PO ONE (15:00)
[2022-04-03 17:49] VITALS: BP 153/77; PULSE 61; TEMP 97.7
== END 2022-04-03 15:10 | disposition home or self-care (01) ==
LOC: JONCCHEMO 06:29
PROVIDERS: ATTEND Internal Medicine Hematology & Oncology
DX: Z51.11 Encounter for antineoplastic chemotherapy (principal); C90.00 Multiple myeloma not having achieved remission
CPT/HCPCS: 36415; 80053; 85025; 96401; J9041

== ENCOUNTER 2022-04-10 08:08 | Day surgery (SDC) | payer OTHER ==
[2022-04-10] MEDS ORDERED: DEXAMETHASONE 4 MG TABLET (FP) PO ONE (10:00)
[2022-04-10] MEDS ORDERED: CYCLOPHOSPHAMIDE PO ONE (10:00)
[2022-04-10] MEDS ORDERED: BORTEZOMIB (VELCADE) 2.5 MG/ML SUB-Q INJECTION SQ ONE (10:30)
[2022-04-10 11:08] LABS: HEMATOCRIT 31.3 % (35.4-49); HEMOGLOBIN 10.8 GM/dL (11.7-16.9); MCH 33.7 pg (25.7-33.7); MCHC 34.4 g/dl (32.0-35.9); MEAN CELL VOLUME 97.8 fl (80-96); MEAN PLT VOLUME 8.7 fl (7.5-11.1); PLATELET COUNT 191 10^3/uL (134-434); RDW 13.7 % (11.9-15.9); WHITE BLOOD COUNT 3.5 K/mm3 (4.0-10.0)
[2022-04-10 11:17] VITALS: BP 124/68; PULSE 68; TEMP 98
[2022-04-10 11:36] LABS: CALCIUM 8.8 mg/dL (8.5-10.1)
[2022-04-10 11:37] LABS: ALBUMIN 3.6 g/dl (3.4-5.0); BLOOD UREA NITROGEN 17.6 mg/dL (7-18)
[2022-04-10 11:40] LABS: CREATININE 1.6 mg/dL (0.55-1.3)
[2022-04-10 11:41] LABS: TOT PROT 6.6 g/dl (6.4-8.2)
[2022-04-10 11:42] LABS: BILIRUBIN,TOTAL 0.5 mg/dL (0.2-1)
[2022-04-10 12:08] LABS: ANISOCYTOSIS 1+; MACROCYTOSIS 0
== END 2022-04-10 13:20 | disposition home or self-care (01) ==
LOC: JONCCHEMO 08:08
PROVIDERS: ATTEND Internal Medicine Hematology & Oncology
DX: Z51.11 Encounter for antineoplastic chemotherapy (principal); C90.00 Multiple myeloma not having achieved remission
CPT/HCPCS: 36415; 80053; 85025; 96401; J9041

== ENCOUNTER 2022-04-23 14:19 | Day surgery (SDC) | payer OTHER ==
[2022-04-23] MEDS ORDERED: DEXAMETHASONE 4 MG TABLET (FP) PO ONE (15:00)
[2022-04-23] MEDS ORDERED: CYCLOPHOSPHAMIDE PO ONE ×2 (15:00)
[2022-04-23 15:23] LABS: HEMATOCRIT 31.9 % (35.4-49); HEMOGLOBIN 11.1 GM/dL (11.7-16.9); LYMPH % 11.8 % (8-40); MCHC 34.9 g/dl (32.0-35.9); MEAN CELL VOLUME 97.4 fl (80-96); MEAN PLT VOLUME 7.1 fl (7.5-11.1); MONO % 12.1 % (3.8-10.2); NEUT % 73.1 % (42.8-82.8); PLATELET COUNT 241 10^3/uL (134-434); RBC 3.28 M/mm3 (4.00-5.60); RDW 13.7 % (11.9-15.9); WHITE BLOOD COUNT 5.5 K/mm3 (4.0-10.0)
[2022-04-23] MEDS ORDERED: BORTEZOMIB (VELCADE) 2.5 MG/ML SUB-Q INJECTION SQ ONE (15:30)
[2022-04-23 15:54] LABS: ALBUMIN 3.8 g/dl (3.4-5.0); CALCIUM 8.6 mg/dL (8.5-10.1)
[2022-04-23 15:57] LABS: CREATININE 1.6 mg/dL (0.55-1.3)
[2022-04-23 15:59] LABS: BILIRUBIN,TOTAL 0.4 mg/dL (0.2-1); TOT PROT 6.6 g/dl (6.4-8.2)
[2022-04-23 16:00] LABS: BLOOD UREA NITROGEN 22.7 mg/dL (7-18)
[2022-04-23 18:17] VITALS: BP 122/86; PULSE 77; TEMP 98.5
== END 2022-04-23 16:30 | disposition home or self-care (01) ==
LOC: JONCCHEMO 14:19
PROVIDERS: ATTEND Internal Medicine Hematology & Oncology
DX: Z51.11 Encounter for antineoplastic chemotherapy (principal); C90.00 Multiple myeloma not having achieved remission
CPT/HCPCS: 36415; 80053; 85025; 96401; J9041

== ENCOUNTER 2022-05-01 07:07 | Day surgery (SDC) | payer OTHER ==
[2022-05-01 09:40] LABS: HEMATOCRIT 32.9 % (35.4-49); HEMOGLOBIN 11.4 GM/dL (11.7-16.9); MCH 33.7 pg (25.7-33.7); MCHC 34.8 g/dl (32.0-35.9); MEAN CELL VOLUME 96.9 fl (80-96); MEAN PLT VOLUME 8.3 fl (7.5-11.1); PLATELET COUNT 178 10^3/uL (134-434); RBC 3.39 M/mm3 (4.00-5.60); RDW 13.8 % (11.9-15.9); WHITE BLOOD COUNT 4.1 K/mm3 (4.0-10.0)
[2022-05-01] MEDS ORDERED: BORTEZOMIB (VELCADE) 2.5 MG/ML SUB-Q INJECTION SQ ONE ×2 (10:00→12:00)
[2022-05-01] MEDS ORDERED: DEXAMETHASONE 4 MG TABLET (FP) PO ONE (10:00)
[2022-05-01] MEDS ORDERED: CYCLOPHOSPHAMIDE PO ONE (10:00)
[2022-05-01 10:03] LABS: ALBUMIN 3.7 g/dl (3.4-5.0); BLOOD UREA NITROGEN 22.5 mg/dL (7-18); CALCIUM 8.3 mg/dL (8.5-10.1)
[2022-05-01 10:07] LABS: CREATININE 1.7 mg/dL (0.55-1.3)
[2022-05-01 10:08] LABS: BILIRUBIN,TOTAL 0.4 mg/dL (0.2-1); TOT PROT 6.3 g/dl (6.4-8.2)
[2022-05-01 11:11] LABS: ANISOCYTOSIS 0; MACROCYTOSIS 2+
[2022-05-01] MEDS ORDERED: DENOSUMAB 120 MG/1.7 ML VIAL SQ ONE (12:00)
[2022-05-01 16:53] VITALS: BP 139/80; PULSE 63; TEMP 98.1
== END 2022-05-01 13:00 | disposition home or self-care (01) ==
LOC: JONCCHEMO 07:07
PROVIDERS: ATTEND Internal Medicine Hematology & Oncology
PROC: 3E01305 Introduction of Other Antineoplastic into Subcutaneous Tissue, Percutaneous Approach (ICD-10-PCS; principal; 2022-05-01)
PROC: 3E013GC Introduction of Other Therapeutic Substance into Subcutaneous Tissue, Percutaneous Approach (ICD-10-PCS; 2022-05-01)
DX: Z51.11 Encounter for antineoplastic chemotherapy (principal); C90.00 Multiple myeloma not having achieved remission
CPT/HCPCS: 36415; 80053; 85025; 96372; 96401; J0897; J9041

== ENCOUNTER 2022-05-08 07:26 | Day surgery (SDC) | payer OTHER ==
[2022-05-08] MEDS ORDERED: DEXAMETHASONE 4 MG TABLET (FP) PO ONE (10:00)
[2022-05-08] MEDS ORDERED: CYCLOPHOSPHAMIDE PO ONE ×2 (10:00)
[2022-05-08] MEDS ORDERED: BORTEZOMIB (VELCADE) 2.5 MG/ML SUB-Q INJECTION SQ ONE ×2 (10:00→12:00)
[2022-05-08 10:29] LABS: BASO % 0.6 % (0-2.0); EOS % 3.8 % (0-4.5); HEMATOCRIT 33.7 % (35.4-49); HEMOGLOBIN 11.7 GM/dL (11.7-16.9); LYMPH % 10.9 % (8-40); MCH 33.3 pg (25.7-33.7); MCHC 34.7 g/dl (32.0-35.9); MEAN CELL VOLUME 95.8 fl (80-96); MEAN PLT VOLUME 8.4 fl (7.5-11.1); MONO % 12.3 % (3.8-10.2); NEUT % 72.4 % (42.8-82.8); PLATELET COUNT 162 10^3/uL (134-434); RBC 3.52 M/mm3 (4.00-5.60); RDW 13.6 % (11.9-15.9); WHITE BLOOD COUNT 4.9 K/mm3 (4.0-10.0)
[2022-05-08 10:59] LABS: ALBUMIN 3.5 g/dl (3.4-5.0); BLOOD UREA NITROGEN 24.5 mg/dL (7-18); CALCIUM 8.6 mg/dL (8.5-10.1)
[2022-05-08 11:01] LABS: CREATININE 1.7 mg/dL (0.55-1.3)
[2022-05-08 11:03] LABS: BILIRUBIN,TOTAL 0.4 mg/dL (0.2-1); TOT PROT 6.1 g/dl (6.4-8.2)
[2022-05-08 11:19] LABS: ANISOCYTOSIS 0; HELMET CELLS 0; HOWELL-JOLLY BODIES 0; MACROCYTOSIS 0; OVALOCYTE 0; ROULEAU 0; SICKELED CELLS 0; TARGET CELLS 0; TEAR DROP CELLS 0; TOXIC GRANULATION 0
[2022-05-08 16:59] VITALS: TEMP 97.8
[2022-05-08 17:02] VITALS: BP 158/87; PULSE 72
[2022-05-09 17:08] LABS: FREE KAPPA,SERUM 17.1 mg/L (3.3-19.4)
== END 2022-05-08 13:05 | disposition home or self-care (01) ==
LOC: JONCCHEMO 07:26
PROVIDERS: ATTEND Internal Medicine Hematology & Oncology
DX: Z51.11 Encounter for antineoplastic chemotherapy (principal); C90.00 Multiple myeloma not having achieved remission
CPT/HCPCS: 36415; 80053; 83883; 85025; 96401; J9041

== ENCOUNTER 2022-05-11 06:41 | Observation (INO) | payer OTHER ==
[2022-05-11] MEDS ORDERED: FAMOTIDINE 20 MG TABLET PO ONE (08:13)
[2022-05-11] MEDS ORDERED: FAMOTIDINE 20 MG TABLET ONE (08:19)
[2022-05-11] MEDS ORDERED: LORATADINE 10 MG TABLET PO ONE (08:33)
[2022-05-11] MEDS ORDERED: LORATADINE 10 MG TABLET ONE (08:36)
[2022-05-11] MEDS ORDERED: DEXAMETHASONE SOD PHOSPHATE 10 MG/1 ML VIAL IVPUSH ONE (08:36)
[2022-05-11] MEDS ORDERED: DEXAMETHASONE SOD PHOSPHATE 10 MG/1 ML VIAL ONE (08:58)
[2022-05-11 09:24] LABS: HEMATOCRIT 36.7 % (35.4-49); HEMOGLOBIN 12.2 GM/dL (11.7-16.9); MCH 32.4 pg (25.7-33.7); MCHC 33.3 g/dl (32.0-35.9); MEAN CELL VOLUME 97.5 fl (80-96); MEAN PLT VOLUME 8.6 fl (7.5-11.1); PLATELET COUNT 167 10^3/uL (134-434); RBC 3.77 M/mm3 (4.00-5.60); RDW 13.6 % (11.9-15.9); WHITE BLOOD COUNT 5.9 K/mm3 (4.0-10.0)
[2022-05-11 09:44] LABS: CHLORIDE 104 mmol/L (98-107); SODIUM 134 mmol/L (136-145)
[2022-05-11 09:46] LABS: ALBUMIN 4.1 g/dl (3.4-5.0); ANION GAP 10 MMOL/L (8-16); CALCIUM 7.8 mg/dL (8.5-10.1); CO2 20 mmol/L (21-32); GLUCOSE,RANDOM 104 mg/dL (74-106)
[2022-05-11 09:47] LABS: BLOOD UREA NITROGEN 26.6 mg/dL (7-18)
[2022-05-11 09:49] LABS: CREATININE 1.8 mg/dL (0.55-1.3)
[2022-05-11 09:50] LABS: SGOT/AST 20 U/L (15-37); SGPT/ALT 27 U/L (13-61)
[2022-05-11 09:51] LABS: BILIRUBIN,TOTAL 0.5 mg/dL (0.2-1)
[2022-05-11 09:52] LABS: ALK PHOS 104 U/L (45-117)
[2022-05-11 09:56] LABS: ANISOCYTOSIS 1+; MACROCYTOSIS 0
[2022-05-11] MEDS ORDERED: HEPARIN NA (PORCINE) 5,000 UNITS/ML 1ML VIAL SQ SCH (14:00)
[2022-05-11] MEDS ORDERED: PANTOPRAZOLE 40 MG TABLET PO ONE (14:30)
[2022-05-11] MEDS ORDERED: valACYclovir HCL 500 MG TABLET (FP) ONE (14:31)
[2022-05-11] MEDS ORDERED: HEPARIN NA (PORCINE) 5,000 UNITS/ML 1ML VIAL ONE (14:31)
[2022-05-11] MEDS ORDERED: PANTOPRAZOLE 40 MG TABLET PO SCH (15:30)
[2022-05-11] MEDS ORDERED: valACYclovir HCL 500 MG TABLET (FP) PO SCH (15:30)
[2022-05-11] MEDS ORDERED: methylPREDNISolone NA SUCC 40 MG/1 ML VIAL ONE ×2 (16:57→23:01)
[2022-05-11] MEDS: methylPREDNISolone NA SUCC 40 MG/1 ML VIAL IVPUSH SCH ×2 (17:00→17:19)
[2022-05-11] MEDS ORDERED: methylPREDNISolone NA SUCC 40 MG/1 ML VIAL IVPB SCH (19:54)
[2022-05-11] MEDS: methylPREDNISolone NA SUCC 40 MG/1 ML VIAL IVPB SCH (23:35)
[2022-05-11] MEDS: CALCIUM 500MG/VIT-D 200 UNITS COMBO TABLET (FP) PO SCH (23:35)
[2022-05-11] MEDS: TRIAMCINOLONE ACET 0.1% CREAM 15 GM TUBE TP SCH (23:35)
[2022-05-12] MEDS ORDERED: methylPREDNISolone NA SUCC 40 MG/1 ML VIAL ONE (04:49)
[2022-05-12] MEDS: methylPREDNISolone NA SUCC 40 MG/1 ML VIAL IVPB SCH ×4 (05:23→22:56)
[2022-05-12 08:08] LABS: HEMATOCRIT 33.3 % (35.4-49); HEMOGLOBIN 11.6 GM/dL (11.7-16.9); MCHC 34.7 g/dl (32.0-35.9); MEAN CELL VOLUME 95.1 fl (80-96); MEAN PLT VOLUME 9.3 fl (7.5-11.1); PLATELET COUNT 144 10^3/uL (134-434); RDW 13.7 % (11.9-15.9)
[2022-05-12 09:38] LABS: ANISOCYTOSIS 0; HELMET CELLS 0; HOWELL-JOLLY BODIES 0; MACROCYTOSIS 0; OVALOCYTE 0; ROULEAU 0; SICKELED CELLS 0; TARGET CELLS 0; TEAR DROP CELLS 0; TOXIC GRANULATION 0
[2022-05-12 09:56] LABS: BLOOD UREA NITROGEN 36.2 mg/dL (7-18)
[2022-05-12 09:57] LABS: ALBUMIN 3.4 g/dl (3.4-5.0)
[2022-05-12 09:58] LABS: CALCIUM 8.1 mg/dL (8.5-10.1)
[2022-05-12 10:00] LABS: CREATININE 1.7 mg/dL (0.55-1.3)
[2022-05-12] MEDS ORDERED: predniSONE 20 MG TABLET (UD) PO ONE (10:00)
[2022-05-12] MEDS ORDERED: TRIAMCINOLONE ACET 0.025% CREAM 15 GM TUBE TP SCH (10:00)
[2022-05-12] MEDS ORDERED: ALLOPURINOL 100 MG TABLET (FP) PO SCH (10:00)
[2022-05-12 10:02] LABS: BILIRUBIN,TOTAL 0.5 mg/dL (0.2-1); TOT PROT 6.2 g/dl (6.4-8.2)
[2022-05-12] MEDS ORDERED: LORATADINE 10 MG TABLET ONE (10:33)
[2022-05-12] MEDS ORDERED: PANTOPRAZOLE 20 MG TABLET PO ONE (10:33)
[2022-05-12] MEDS: LORATADINE 10 MG TABLET PO SCH (10:39)
[2022-05-12] MEDS: PANTOPRAZOLE 20 MG TABLET PO SCH (10:39)
[2022-05-12] MEDS: TRIAMCINOLONE ACET 0.1% CREAM 15 GM TUBE TP SCH ×2 (10:39→22:55)
[2022-05-12] MEDS: CALCIUM 500MG/VIT-D 200 UNITS COMBO TABLET (FP) PO SCH ×2 (10:39→22:55)
[2022-05-12 13:54] VITALS: BMI 21.5
[2022-05-12] MEDS: POLYETHYLENE GLYCOL (HEALTHYLAX) 3350 17 GM PACKET PO SCH (22:55)
[2022-05-13] MEDS: methylPREDNISolone NA SUCC 40 MG/1 ML VIAL IVPB SCH ×3 (04:43→17:13)
[2022-05-13] MEDS: POLYETHYLENE GLYCOL (HEALTHYLAX) 3350 17 GM PACKET PO SCH (09:12)
[2022-05-13] MEDS: LORATADINE 10 MG TABLET PO SCH (09:12)
[2022-05-13] MEDS: PANTOPRAZOLE 20 MG TABLET PO SCH (09:12)
[2022-05-13] MEDS: CALCIUM 500MG/VIT-D 200 UNITS COMBO TABLET (FP) PO SCH ×2 (09:14→21:26)
[2022-05-13] MEDS: TRIAMCINOLONE ACET 0.1% CREAM 15 GM TUBE TP SCH ×2 (09:16→21:27)
[2022-05-13] MEDS ORDERED: predniSONE 20 MG TABLET (UD) PO ONE (10:00)
[2022-05-13] MEDS: HEPARIN NA (PORCINE) 5,000 UNITS/ML 1ML VIAL SQ SCH (21:26)
[2022-05-14] MEDS ORDERED: HYDROCORTISONE 1% TOPICAL CREAM 30 GM TUBE TP PRN (00:48)
[2022-05-14] MEDS: methylPREDNISolone NA SUCC 40 MG/1 ML VIAL IVPB SCH ×2 (01:17→10:27)
[2022-05-14] MEDS: HEPARIN NA (PORCINE) 5,000 UNITS/ML 1ML VIAL SQ SCH ×2 (05:15→15:16)
[2022-05-14 08:32] LABS: HEMATOCRIT 34.5 % (35.4-49); HEMOGLOBIN 11.9 GM/dL (11.7-16.9); MCH 32.4 pg (25.7-33.7); MCHC 34.5 g/dl (32.0-35.9); MEAN CELL VOLUME 93.8 fl (80-96); MEAN PLT VOLUME 9.8 fl (7.5-11.1); PLATELET COUNT 164 10^3/uL (134-434); RBC 3.68 M/mm3 (4.00-5.60); RDW 13.3 % (11.9-15.9); WHITE BLOOD COUNT 12.2 K/mm3 (4.0-10.0)
[2022-05-14 08:41] LABS: CALCIUM 8.7 mg/dL (8.5-10.1)
[2022-05-14 08:42] LABS: ALBUMIN 3.5 g/dl (3.4-5.0); BLOOD UREA NITROGEN 43.4 mg/dL (7-18); MAGNESIUM 2.3 mg/dL (1.8-2.4)
[2022-05-14 08:45] LABS: CREATININE 1.7 mg/dL (0.55-1.3); PHOSPHOROUS 2.6 mg/dL (2.5-4.9)
[2022-05-14 08:46] LABS: BILIRUBIN,TOTAL 0.5 mg/dL (0.2-1); TOT PROT 6.1 g/dl (6.4-8.2)
[2022-05-14] MEDS ORDERED: predniSONE 20 MG TABLET (UD) PO ONE (10:00)
[2022-05-14] MEDS: CALCIUM 500MG/VIT-D 200 UNITS COMBO TABLET (FP) PO SCH (10:22)
[2022-05-14] MEDS: POLYETHYLENE GLYCOL (HEALTHYLAX) 3350 17 GM PACKET PO SCH (10:27)
[2022-05-14] MEDS: TRIAMCINOLONE ACET 0.1% CREAM 15 GM TUBE TP SCH (10:28)
[2022-05-14] MEDS: LORATADINE 10 MG TABLET PO SCH (10:31)
[2022-05-14] MEDS: PANTOPRAZOLE 20 MG TABLET PO SCH (10:31)
[2022-05-14 10:56] LABS: ANISOCYTOSIS 1+; MACROCYTOSIS 0
[2022-05-14] MEDS ORDERED: methylPREDNISolone NA SUCC 40 MG/1 ML VIAL IVPUSH SCH (17:36)
[2022-05-14 19:34] VITALS: BP 147/84; PULSE 78; TEMP 97.5
[2022-05-15] MEDS ORDERED: predniSONE 10 MG TABLET (UD) PO ONE (10:00)
[2022-05-16] MEDS ORDERED: predniSONE 20 MG TABLET (UD) PO ONE (10:00)
[2022-05-17] MEDS ORDERED: predniSONE 10 MG TABLET (UD) PO ONE (10:00)
== END 2022-05-14 19:36 | disposition home or self-care (01) ==
LOC: JERFT 06:41 → JER 06:41 → JERBED 10:11 → J5S 05-12 10:57
PROVIDERS: ADMIT Internal Medicine; ATTEND Internal Medicine
PROC: 3E023GC Introduction of Other Therapeutic Substance into Muscle, Percutaneous Approach (ICD-10-PCS; principal; 2022-05-11)
PROC: 3E033GC Introduction of Other Therapeutic Substance into Peripheral Vein, Percutaneous Approach (ICD-10-PCS; 2022-05-11)
DX: R21 Rash and other nonspecific skin eruption (principal); M35.00 Sjogren syndrome, unspecified; N18.9 Chronic kidney disease, unspecified; C90.00 Multiple myeloma not having achieved remission; R11.0 Nausea; Z87.891 Personal history of nicotine dependence; D64.9 Anemia, unspecified; Z79.899 Other long term (current) drug therapy
CPT/HCPCS: 36415; 80053; 83735; 84100; 84443; 85025; 85651; 86140; 93005; 93010; 96372; 96374; 96375; 96376; 99285-25; C9803-CS; G0378; J1100; J1644; U0003; U0005